=== PATIENT | male | born 1985 | race African-American/Black ===

== ENCOUNTER 2018-10-29 21:26 | Emergency (ER) | payer OTHER ==
[2018-10-29] MEDS ORDERED: SODIUM CHLORIDE 1,000 ML IV STA (21:34)
--- NOTE | 2018-10-29 21:39 | PDOC ---
History of Present Illness - General Chief Complaint: Alcohol intoxication Stated Complaint: INTOX Time Seen by Provider: 10/29/18 21:28 History Source: Patient, EMS - History of Present Illness Initial Comments: 10/29/18 22:48 33-year-old male brought in by ambulance found outside the [facility] alley laying on the floor face down, reported drinking heavily. Patient is currently at bedside with sister. Patient with slurred speech and alcohol on breath no evidence of trauma denies fall or head injury. Patient reports that denies drug abuse. Past History - Past Medical History Allergies/Adverse Reactions: Allergies Allergy/AdvReac Type Severity Reaction Status Date / Time No Known Allergies Allergy Verified 10/29/18 21:45 Home Medications: Ambulatory Orders NK [No Known Home Medication] 10/29/18 Review of Systems - Review of Systems Able to Perform ROS?: Yes Is the patient limited Macedonian proficient: No Constitutional: No: Symptoms Reported, See HPI, Chills, Diaphoresis, Fever, Loss of Appetite, Malaise, Night Sweats, Weakness, Weight Stable, Unintentional Wgt. Loss, Unexplained wgt Loss, Other Psychiatric: No: Anxiety, Depression, Frequent Crying, Stressors, Sleep Pattern Change, Emotional Problems, Mood Swings, Change in Appetite, Other *Physical Exam - Physical Exam General Appearance: Yes: Alcohol on Breath, Intoxicated Respiratory/Chest: positive: Lungs Clear, Normal Breath Sounds Cardiovascular: positive: Regular Rhythm, Regular Rate Extremity: positive: Normal Capillary Refill, Normal Inspection, Normal Range of Motion Integumentary: positive: Dry, Warm Neurologic: positive: Alert (slurred speech, sleepy) ED Treatment Course - LABORATORY CBC & Chemistry Diagram: 10/29/18 22:16 10/29/18 22:16 Medical Decision Making - Medical Decision Making 10/29/18 22:50 A: alcohol intoxication P: labs IVF 10/30/18 01:18 patient alert awake. family at bedside. able to walk,. will d/c home *DC/Admit/Observation/Transfer Diagnosis at time of Disposition: Alcohol intoxication Qualifiers: Complication of substance-induced condition: uncomplicated Qualified Code(s): F10.920 - Alcohol use, unspecified with intoxication, uncomplicated - Discharge Dispostion Disposition: HOME Condition at time of disposition: Fair - Referrals Referrals: Mehrdad Ballesteros [Primary Care Provider] - - Patient Instructions Printed Discharge Instructions: DI for Alcohol Abuse Additional Instructions: refrain from drinking alcohol. - Post Discharge Activity Forms/Work/School Notes: Back to Work
[2018-10-29 21:45] VITALS: BP 135/78; PULSE 89; TEMP 97.7; BMI 26.6
[2018-10-29] MEDS ORDERED: SODIUM CHLORIDE 1,000 ML IV SCH (21:45)
[2018-10-29 22:37] LABS: BASO % 0.7 % (0-2.0); EOS % 2.5 % (0-4.5); HEMATOCRIT 43.8 % (35.4-49); HEMOGLOBIN 14.8 GM/dL (11.7-16.9); MCH 29.2 pg (25.7-33.7); MCHC 33.8 g/dl (32.0-35.9); MEAN CELL VOLUME 86.4 fl (80-96); MEAN PLT VOLUME 9.2 fl (7.5-11.1); MONO % 5.3 % (3.8-10.2); NEUT % 65.5 % (42.8-82.8); PLATELET COUNT 193 K/MM3 (134-434); RBC 5.06 M/mm3 (4.00-5.60); RDW 13.6 % (11.9-15.9); WHITE BLOOD COUNT 12.2 K/mm3 (4.0-10.0)
[2018-10-29] MEDS ORDERED: ONDANSETRON 4 MG/2 ML VIAL IVPUSH ONE (22:51)
[2018-10-29] MEDS ORDERED: ONDANSETRON 4 MG/2 ML VIAL ONE (22:56)
[2018-10-29 23:00] LABS: ALBUMIN 4.2 g/dl (3.4-5.0); ALK PHOS 85 U/L (45-117); ANION GAP 9 MMOL/L (8-16); BILIRUBIN,TOTAL 0.2 mg/dL (0.2-1); BLOOD UREA NITROGEN 8 mg/dL (7-18); CALCIUM 9.4 mg/dL (8.5-10.1); CHLORIDE 108 mmol/L (98-107); CO2 25 mmol/L (21-32); CREATININE 0.9 mg/dL (0.55-1.3); GLUCOSE,RANDOM 108 mg/dL (74-106); POTASSIUM 3.9 mmol/L (3.5-5.1); SGOT/AST 11 U/L (15-37); SGPT/ALT 21 U/L (13-61); SODIUM 142 mmol/L (136-145); TOT PROT 7.8 g/dl (6.4-8.2)
[2018-10-30 00:37] LABS: URINE APPEARANCE CLEAR; URINE BILIRUBIN NEGATIVE (<2.0 mg/dL); URINE COLOR LTYELLOW; URINE GLUCOSE (UA) NEGATIVE (NEGATIVE); URINE KETONE NEGATIVE (NEGATIVE); URINE LEUK ESTERASE NEGATIVE (NEGATIVE); URINE NITRITE NEGATIVE (NEGATIVE); URINE PROTEIN NEGATIVE (NEGATIVE); URINE UROBILINOGEN NEGATIVE mg/dL (0.2-1.0)
[2018-10-30 00:54] LABS: COCAINE, UR NEGATIVE ng/ml (CUTOFF=300); METHADONE, UR NEGATIVE ng/ml (CUTOFF=300); OPIATES, URI NEGATIVE ng/ml (CUTOFF=300); PHENCYCLIDINE,URINE NEGATIVE ng/ml (CUTOFF=25); URINE AMPHETAMINES NEGATIVE ng/ml (CUTOFF=500); URINE BARBITURATES NEGATIVE ng/ml (CUTOFF=200); URINE BENZODIAZEPINES NEGATIVE ng/ml (CUTOFF=200)
== END 2018-10-30 01:37 | disposition home or self-care (01) ==
LOC: JER 21:26
PROC: 3E0337Z Introduction of Electrolytic and Water Balance Substance into Peripheral Vein, Percutaneous Approach (ICD-10-PCS; principal; 2018-10-29)
PROC: 3E033GC Introduction of Other Therapeutic Substance into Peripheral Vein, Percutaneous Approach (ICD-10-PCS; 2018-10-29)
DX: F10.120 Alcohol abuse with intoxication, uncomplicated (principal); Y90.7 Blood alcohol level of 200-239 mg/100 ml
CPT/HCPCS: 36415; 80053; 80307; 81003; 85025; 96361; 96374; 99282-25; J7030